=== PATIENT | female | born 1985 | race African-American/Black ===

== ENCOUNTER 2019-05-31 00:31 | Emergency (ER) | payer OTHER ==
[2019-05-31 01:12] VITALS: BP 131/58; PULSE 87; TEMP 98.4; BMI 43.8
--- NOTE | 2019-05-31 01:55 | PDOC ---
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 Patient denies any pain to the site no increased swelling, pus drainage. Patient reports that she went to a clinic and [facility] right advised to come to the emergency room for treatment. Patient reports that she has been having lengthy periods for the last 2 years since inserting the implant. 05/31/19 01:59 Past History - Past Medical History Allergies/Adverse Reactions: Allergies Allergy/AdvReac Type Severity Reaction Status Date / Time No Known Allergies Allergy Verified 05/31/19 01:34 - Psycho Social/Smoking Cessation Hx Smoking History: Never smoked Information on smoking cessation initiated: No Hx Alcohol Use: No Drug/Substance Use Hx: No Review of Systems - Review of Systems Able to Perform ROS?: Yes Is the patient limited Icelandic proficient: No Integumentary: Yes: Other (implant in left arm ) *Physical Exam - Vital Signs Last Vital Signs Temp Pulse Resp BP Pulse Ox 98.4 F 87 15 131/58 L 99 05/31/19 00:31 05/31/19 00:31 05/31/19 00:31 05/31/19 00:31 05/31/19 00:31 - Physical Exam General Appearance: Yes: Appropriately Dressed Integumentary: positive: Other (lft arm foreign body palpated. 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 Please follow-up with the speech pathology assistant to have your implant removed - Post Discharge Activity Work/Back to School Note: Back to Work
== END 2019-05-31 02:30 | disposition home or self-care (01) ==
LOC: JER 00:31
DX: N93.9 Abnormal uterine and vaginal bleeding, unspecified (principal)
CPT/HCPCS: 99282-25